=== PATIENT | female | born 1980 | race Caucasian/White ===

== ENCOUNTER 2018-02-03 13:11 | Emergency (ER) | payer OTHER ==
[~2018-02-03] VITALS: Ht 165.1 cm; Wt 66.2 kg
[2018-02-03] MEDS ORDERED: TAMS0.4C PO (16:29)
== END 2018-02-03 17:46 | disposition home or self-care (01) ==
LOC: ER 13:11
DX: R33.8 Other retention of urine (principal)

== ENCOUNTER 2018-11-06 22:41 | Emergency (ER) | payer OTHER ==
[~2018-11-06] VITALS: Ht 167.6 cm; Wt 68.0 kg
[~2018-11-06 22:41] MED LIST: TAMS0.4C PO
[2018-11-07] MEDS ORDERED: PREDNISONE20 MG PO (01:36)
== END 2018-11-07 01:42 | disposition home or self-care (01) ==
LOC: ER 22:41
DX: R33.8 Other retention of urine (principal)

== ENCOUNTER 2019-09-10 15:27 | Emergency (ER) | payer OTHER ==
[~2019-09-10] VITALS: Ht 165.1 cm; Wt 64.4 kg
[~2019-09-10 15:27] MED LIST changes: +PREDNISONE20 MG PO
== END 2019-09-10 21:24 | disposition home or self-care (01) ==
LOC: ER 15:27
DX: K52.89 Other specified noninfective gastroenteritis and colitis (principal)